=== PATIENT | male | born 1955 | race American Indian/Alaskan Native ===

== ENCOUNTER 2019-03-22 14:40 | Emergency (ER) | payer OTHER ==
[~2019-03-22] VITALS: Ht 175.3 cm; Wt 88.5 kg
[2019-03-22 15:06] LABS: PCO2 Arterial 27.3 mmHg (35-45); PO2 Arterial 58.1 mmHg (80-100); pH Blood Arterial 7.45 (7.35-7.45)
[2019-03-22 15:24] LABS: Hemoglobin 13.4 g/dL (13.5-17.5); Mean Corpuscular HGB 33.8 pg (26.0-34.0); Mean Corpuscular HGB Conc 35.3 g/dL (31.5-36.5); Mean Corpuscular Volume 96 fL (80-100); NRBC ABSOLUTE 0.06 K/mm3 (0.00-0.02); NRBC Auto 0.6 /100 WBC (0.0-0.2); Platelet Count 295 K/mm3 (150-400); RDW Coefficient Variation 12.7 % (11.7-14.2); RDW Standard Deviation 45.5 fL (35.1-46.3); Red Blood Cell Count 3.96 M/mm3 (4.30-5.90); White Blood Cell Count 10.63 K/mm3 (4.00-11.30)
[2019-03-22 15:31] LABS: Alanine Aminotransfer (ALT/SGP 333 U/L (12-78); Albumin, Blood 4.1 g/dL (3.4-5.0); Albumin/Globulin Ratio 0.9 (0.8-1.8); Alk Phos 93 U/L (50-136); Anion Gap 19 mmol/L (6-16); Aspartate Aminotrans (AST/SGOT 694 U/L (12-37); Bilirubin, Total 2.1 mg/dL (0.1-1.0); Blood Urea Nitrogen 65 mg/dL (8-24); CO2, Blood 22 mmol/L (21-32); Calcium, Blood 9.3 mg/dL (8.5-10.1); Chloride, Blood 83 mmol/L (98-108); Creatinine, Blood 4.34 mg/dL (0.60-1.20); Ethanol (Alcohol), Blood, Med <3 mg/dL; Globulin, Blood 4.5 g/dL (2.2-4.0); Glomerular Filtration Rate 15 (60-); Glucose, Blood 104 mg/dL (70-99); Magnesium, Blood 3.4 mg/dL (1.6-2.4); Potassium, Blood 3.4 mmol/L (3.5-5.5); Sodium, Blood 124 mmol/L (136-145); Total Protein, Blood 8.6 g/dL (6.4-8.2); Troponin I 0.019 ng/mL (0.000-0.040)
[2019-03-22 15:50] LABS: Source, Urine Catheter
[2019-03-22 15:54] LABS: Appearance, Urine Hazy (Clear); Blood, Urine 1+ (Neg); Color, Urine Yellow (P-Yellow); Glucose Qualitative, Urine Neg (Neg); Ketones, Urine Neg (Neg); Leukocyte Esterase, Urine 1+ (Neg); Nitrite, Urine Neg (Neg); Protein, Urine 3+ (Neg); Urobilinogen, Urine 1+ (Normal)
[2019-03-22 16:03] LABS: BAND PERCENT MAN 10 % (0-8); BASOPHILS PERCENT MAN 0 % (0-2); EOSINOPHILS PERCENT MAN 0 % (0-6); LYMPHOCYTES ABSOLUTE MAN 2.44 K/mm3 (0.84-5.20); LYMPHOCYTES PERCENT MAN 23 % (21-46); METAMYELOCYTE ABSOLUTE MAN 0.53 K/mm3 (0.00-0.00); METAMYELOCYTE PERCENT MAN 5 % (0-0); MONOCYTES ABSOLUTE MAN 0.74 K/mm3 (0.16-1.47); MONOCYTES PERCENT MAN 7 % (4-13); MYELOCYTE PERCENT MAN 1 % (0-0); SEG NEUTROPHILS PERCENT MAN 54 % (41-73); TOTAL CELLS COUNTED 100
[2019-03-22 16:07] LABS: U Amphetamine Screen DETECTED; U Barbituate Screen Not Detected; U Benzodiazapine Screen Not Detected; U Methamphetamine Screen DETECTED
[2019-03-22 16:08] LABS: U Buprenorphine Screen Not Detected; U Cannabinoids Screen Not Detected; U Cocaine Screen Not Detected; U Methadone Screen Not Detected; U Opiates Screen Not Detected; U Oxycodone Screen Not Detected; U Phencyclidine Screen Not Detected; U Propoxyphene Screen Not Detected
[2019-03-22 16:43] LABS: Bilirubin, Urine 1+ (Neg)
[2019-03-22 16:44] LABS: Bacteria Mod /hpf; Red Blood Cells, Urine 0-2 /hpf (0-2); Squamous Epithelial Cells Few /hpf (Few)
== END 2019-03-22 18:43 | disposition short-term general hospital (02) ==
LOC: ER 14:40
PROVIDERS: Emergency Medicine
DX: J96.01 Acute respiratory failure with hypoxia (principal); N17.9 Acute kidney failure, unspecified; K56.2 Volvulus; Z86.73 Personal history of transient ischemic attack (TIA), and cerebral infarction without residual deficits
CPT/HCPCS: 36415; 36600; 51701; 70450; 71045; 74176; 80053; 81001; 82140; 82803; 83690; 83735; 84484; 85025; 87040; 87086; 93005; 93010; 96361-59; 96365-59; 99285-25; G0480; J2185; J7030

== ENCOUNTER 2019-04-08 18:56 | Inpatient (IN) | payer OTHER ==
[~2019-04-08] VITALS: Ht 172.7 cm; Wt 83.6 kg
[2019-04-08] MEDS ORDERED: PREVALITE PAC4 G/PKT PO (19:25)
[2019-04-08] MEDS ORDERED: K-Dur 20 meq T20 MEQ PO (19:25)
[2019-04-08 20:26] LABS: BASOPHILS ABSOLUTE AUTO 0.07 K/mm3 (0.00-0.23); BASOPHILS PERCENT AUTO 1 % (0-2); EOSINOPHILS ABSOLUTE AUTO 0.14 K/mm3 (0.00-0.68); EOSINOPHILS PERCENT AUTO 2 % (0-6); Hematocrit 38.1 % (37.0-53.0); Hemoglobin 12.5 g/dL (13.5-17.5); IMMATURE GRAN ABSOLUTE AUTO 0.35 K/mm3 (0.00-0.10); IMMATURE GRAN PERCENT AUTO 4 % (0-1); LYMPHOCYTES ABSOLUTE AUTO 2.03 K/mm3 (0.84-5.20); LYMPHOCYTES PERCENT AUTO 25 % (21-46); MONOCYTES ABSOLUTE AUTO 0.86 K/mm3 (0.16-1.47); MONOCYTES PERCENT AUTO 11 % (4-13); Mean Corpuscular HGB 33.8 pg (26.0-34.0); Mean Corpuscular HGB Conc 32.8 g/dL (31.5-36.5); Mean Corpuscular Volume 103 fL (80-100); Mean Platelet Volume 8.4 fL (9.1-12.4); NEUTROPHILS ABSOLUTE AUTO 4.66 K/mm3 (1.96-9.15); NEUTROPHILS PERCENT AUTO 58 % (41-73); NRBC ABSOLUTE 0.03 K/mm3 (0.00-0.02); NRBC Auto 0.4 /100 WBC (0.0-0.2); Platelet Count 443 K/mm3 (150-400); RDW Coefficient Variation 13.9 % (11.7-14.2); RDW Standard Deviation 52.4 fL (35.1-46.3); White Blood Cell Count 8.11 K/mm3 (4.00-11.30)
[2019-04-08 20:37] LABS: Ethanol (Alcohol), Blood, Med <3 mg/dL
[2019-04-08 20:45] LABS: Alanine Aminotransfer (ALT/SGP 29 U/L (12-78); Albumin, Blood 4.4 g/dL (3.4-5.0); Albumin/Globulin Ratio 0.9 (0.8-1.8); Alk Phos 177 U/L (50-136); Anion Gap 8 mmol/L (6-16); Aspartate Aminotrans (AST/SGOT 18 U/L (12-37); Bilirubin, Total 0.5 mg/dL (0.1-1.0); Blood Urea Nitrogen 67 mg/dL (8-24); Bun/Creatinine Ratio 14.7 (12.0-20.0); CO2, Blood 10 mmol/L (21-32); Calcium, Blood 9.5 mg/dL (8.5-10.1); Chloride, Blood 104 mmol/L (98-108); Creatinine, Blood 4.55 mg/dL (0.60-1.20); Globulin, Blood 5.1 g/dL (2.2-4.0); Glomerular Filtration Rate 14 (60-); Glucose, Blood 84 mg/dL (70-99); Potassium, Blood 7.9 mmol/L (3.5-5.5); Sodium, Blood 122 mmol/L (136-145); Total Protein, Blood 9.5 g/dL (6.4-8.2)
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
--- NOTE | 2019-04-08 23:01 | NUR ---
CALLED DR. LYNN ABOUT BLADDER SCAN OF 305ML. NO NEW ORDERS. PT DENIES HAVING TO URINATE.
[2019-04-08 23:21] LABS: Cholesterol 174 mg/dL (50-200); HDL Cholesterol 29 mg/dL (>39); LDL/HDL RATIO 3.5; Low Density Lipoprotein Chol 101 mg/dL (0-110); Triglycerides 221 mg/dL (30-160); Very Low Density Lipoprot Chol 44 mg/dL (6-32)
--- NOTE | 2019-04-09 00:08 | NUR ---
DR. LYNN IN TO SEE PT AND INCREASED IVF TO 150ML/HR.
[2019-04-09 03:53] LABS: Hematocrit 29.8 % (37.0-53.0); Hemoglobin 10.3 g/dL (13.5-17.5); Mean Corpuscular HGB 33.9 pg (26.0-34.0); Mean Corpuscular HGB Conc 34.6 g/dL (31.5-36.5); Mean Platelet Volume 8.4 fL (9.1-12.4); Platelet Count 322 K/mm3 (150-400); RDW Coefficient Variation 13.7 % (11.7-14.2); RDW Standard Deviation 48.6 fL (35.1-46.3); Red Blood Cell Count 3.04 M/mm3 (4.30-5.90); White Blood Cell Count 6.95 K/mm3 (4.00-11.30)
[2019-04-09 03:54] LABS: Mean Corpuscular Volume 98 fL (80-100)
[2019-04-09 04:14] LABS: Alanine Aminotransfer (ALT/SGP 24 U/L (12-78); Albumin, Blood 3.5 g/dL (3.4-5.0); Albumin/Globulin Ratio 0.8 (0.8-1.8); Alk Phos 140 U/L (50-136); Anion Gap 7 mmol/L (6-16); Aspartate Aminotrans (AST/SGOT 17 U/L (12-37); Bilirubin, Total 0.5 mg/dL (0.1-1.0); Blood Urea Nitrogen 60 mg/dL (8-24); CO2, Blood 15 mmol/L (21-32); Calcium, Blood 8.7 mg/dL (8.5-10.1); Chloride, Blood 106 mmol/L (98-108); Creatinine, Blood 3.52 mg/dL (0.60-1.20); Globulin, Blood 4.3 g/dL (2.2-4.0); Glomerular Filtration Rate 19 (60-); Glucose, Blood 96 mg/dL (70-99); Magnesium, Blood 2.4 mg/dL (1.6-2.4); Phosphorus, Blood 4.9 mg/dL (2.5-4.9); Potassium, Blood 5.8 mmol/L (3.5-5.5); Sodium, Blood 128 mmol/L (136-145); Total Protein, Blood 7.8 g/dL (6.4-8.2)
--- NOTE | 2019-04-09 06:11 | NUR ---
PT RESTING IN BED. USES CALL LIGHT APPROPRIATELY. LABS IMPROVING THIS AM. NO SIGN OF DISTRESS.
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
--- NOTE | 2019-04-09 11:33 | NUR ---
PT C/O MIGRAINE 06/29. PT STATES HE DOES NOT TAKE ANYTHING FOR HIS HEADACHES AT HOME. PT ALSO VERY ANXIOUS ABOUT LIVING SITUATION. PT TRYING TO ARRANGE FOR SMALL LOW INCOME APPARTMENT. PT GIVING ME SEVERAL FIRST NAMES OF PEOPLE HE THINKS COULD HELP. UNABLE TO GIVE PHONE NUMBERS OR LAST NAMES. PT DOES NOT APPEAR TO HAVE COGNITIVE ABILITY TO ARRANGE LIVING SITUATION, BUT AGAIN IS VERY ANXIOUS ABOUT CURRENT LIVING SITUIATION AND DOES NOT WANT TO RETURN TO CURRENT HOME. DR DEVINE CALLED R/T HEADACHE; FENT 25MCG TIMES ONE ORDERED.
[2019-04-09 13:59] LABS: C DIFFICILE BY DNA AMP Positive (Negative)
--- NOTE | 2019-04-09 15:11 | NUR ---
PT DENIES C/O HEADACHE. PT RESTING IN BED WATCHING TV W/O COMPLAINTS. TOLERATED CLEAR LIQUID TRY. LABS DRAWN; WILL CALL RESULTS TO DR LYNN WHEN RESULTS AVAILABLE.
[2019-04-09 15:34] LABS: Albumin, Blood 3.3 g/dL (3.4-5.0); Anion Gap 7 mmol/L (6-16); Blood Urea Nitrogen 53 mg/dL (8-24); Bun/Creatinine Ratio 16.8 (12.0-20.0); CO2, Blood 16 mmol/L (21-32); CPK Creatine Kinase 115 U/L (39-308); Calcium, Blood 8.4 mg/dL (8.5-10.1); Chloride, Blood 103 mmol/L (98-108); Creatinine, Blood 3.15 mg/dL (0.60-1.20); Glomerular Filtration Rate 21 (60-); Glucose, Blood 98 mg/dL (70-99); Phosphorus, Blood 4.3 mg/dL (2.5-4.9); Potassium, Blood 5.2 mmol/L (3.5-5.5); Sodium, Blood 126 mmol/L (136-145); Uric Acid, Blood 10.2 mg/dL (3.5-7.2)
--- NOTE | 2019-04-09 15:40 | NUR ---
ASSUMED CARE OF PATIENT FROM MONICA SANTO RN.
--- NOTE | 2019-04-09 15:48 | NUR ---
T/C TO DR. LYNN WITH 1500 LAB RESULTS; INSTRUCTED RN TO REDUCE BICARB DRIP TO 125ML/HR.
--- NOTE | 2019-04-09 18:10 | NUR ---
SUMMARY: PATIENT RESTING OFF/ON T/O AFTERNOON; DRINKING LIQUIDS, FROM DINNER TRAY, SLOW BUT STEADY. SOME BLACKISH/BILE COLORED LIQUID STOOL NOTED IN COLOSTOMY/ABOUT 50ML; NOT EMPTIED AT THIS TIME. DENIES GI UPSET OR ABD PAIN. HEADACHE PAIN RESOLVED. REMAINS PCU STATUS; NO ROOMS AVAILABLE. RN ASSISTS PATIENT WITH HOLDING URINAL IN PLACE FOR VOIDING (OTHERWISE IT LEAKS OR DRIPS ALL OVER THE LINENS).
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
[2019-04-10 03:18] LABS: BASOPHILS ABSOLUTE AUTO 0.04 K/mm3 (0.00-0.23); BASOPHILS PERCENT AUTO 1 % (0-2); EOSINOPHILS ABSOLUTE AUTO 0.22 K/mm3 (0.00-0.68); EOSINOPHILS PERCENT AUTO 4 % (0-6); Hematocrit 25.6 % (37.0-53.0); Hemoglobin 8.9 g/dL (13.5-17.5); IMMATURE GRAN ABSOLUTE AUTO 0.16 K/mm3 (0.00-0.10); IMMATURE GRAN PERCENT AUTO 3 % (0-1); LYMPHOCYTES ABSOLUTE AUTO 1.56 K/mm3 (0.84-5.20); LYMPHOCYTES PERCENT AUTO 30 % (21-46); MONOCYTES ABSOLUTE AUTO 0.44 K/mm3 (0.16-1.47); MONOCYTES PERCENT AUTO 8 % (4-13); Mean Corpuscular HGB 34.1 pg (26.0-34.0); Mean Corpuscular HGB Conc 34.8 g/dL (31.5-36.5); Mean Corpuscular Volume 98 fL (80-100); Mean Platelet Volume 8.2 fL (9.1-12.4); NEUTROPHILS ABSOLUTE AUTO 2.81 K/mm3 (1.96-9.15); NEUTROPHILS PERCENT AUTO 54 % (41-73); NRBC ABSOLUTE 0.02 K/mm3 (0.00-0.02); NRBC Auto 0.4 /100 WBC (0.0-0.2); Platelet Count 263 K/mm3 (150-400); RDW Coefficient Variation 13.8 % (11.7-14.2); Red Blood Cell Count 2.61 M/mm3 (4.30-5.90); White Blood Cell Count 5.23 K/mm3 (4.00-11.30)
[2019-04-10 03:37] LABS: Alanine Aminotransfer (ALT/SGP 18 U/L (12-78); Albumin, Blood 3.2 g/dL (3.4-5.0); Albumin/Globulin Ratio 0.9 (0.8-1.8); Alk Phos 112 U/L (50-136); Anion Gap 6 mmol/L (6-16); Aspartate Aminotrans (AST/SGOT 17 U/L (12-37); Bilirubin, Total 0.4 mg/dL (0.1-1.0); Blood Urea Nitrogen 45 mg/dL (8-24); Bun/Creatinine Ratio 17.6 (12.0-20.0); CO2, Blood 24 mmol/L (21-32); Calcium, Blood 7.9 mg/dL (8.5-10.1); Chloride, Blood 98 mmol/L (98-108); Creatinine, Blood 2.55 mg/dL (0.60-1.20); Globulin, Blood 3.7 g/dL (2.2-4.0); Glomerular Filtration Rate 27 (60-); Glucose, Blood 99 mg/dL (70-99); Phosphorus, Blood 3.4 mg/dL (2.5-4.9); Potassium, Blood 4.7 mmol/L (3.5-5.5); Sodium, Blood 128 mmol/L (136-145); Total Protein, Blood 6.9 g/dL (6.4-8.2)
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
[2019-04-10 08:03] LABS: Percent Saturation 58.8 % (20.0-50.0)
--- NOTE | 2019-04-10 09:27 | NUR ---
0845: CARE ASSUMED, PT RESTING IN BED WATCHING TV, DENIES C/O. COLOSTOMY BAG INTACT WITH SMALL AMOUNT OF SEMI FORMED STOOL, ABD INCISION HEALING WELL WITH NO S/SX INFECTION NOTED. DR. DEVINE IN TO SEE PT, NEW ORDERS. 0915: CLINIMIX INFUSING PER ORDERS, HEPARIN ADMINISTERED. PT MED STATUS NO TELE.
--- NOTE | 2019-04-10 11:42 | NUR ---
ETT ADVANCED BY 3CM BY RT PER DR. FLANNERY, IS NOW 24CM AT THE LIP. FENTANYL ADMINISTERED FOR AGITATION. PT NOW RESTING QUIETLY, NOT CHEWING ON ETT. HR 54, OTHER VSS, PROPOFOL DECREASED TO 40MCG.
--- NOTE | 2019-04-10 12:45 | NUR ---
1100: MATERIAL STOCKKEEPER YARD IN TO VISIT PT. PT RESTING IN BED, VSS, DENIES C/O. 1245: PT EATING LUNCH, DENIES PAIN OR C/O. STOMA TO RLQ BEEFY AND PINK, NO BLEEDING NOTED, STOOL FROM STOMA IS SEMIFORMED. CLINIMIX OFF, NS INFUSING AT 75ML/HR PER DR. LYNN.
--- NOTE | 2019-04-10 13:47 | NUR ---
200ML MUCOUSY GREEN LIQUID STOOL EMPTIED FROM COLOSTOMY BAG. PT DENIES ABD PAIN/DISCOMFORT, TOLERATING REGULAR DIET WELL. PT SITTING UP IN BED TO BRUSH TEETH AND WASH FACE, DENIES C/O.
--- NOTE | 2019-04-10 14:27 | NUR ---
PT REFUSES SHOWER, ALSO REFUSES TO GET OUT OF BED STATING HE HAS A HEADACHE, AGREES TO BEDBATH. LIGHTS OFF, CALL LIGHT AND PO FLUIDS IN REACH, PT DENIES OTHER NEEDS.
--- NOTE | 2019-04-10 17:11 | NUR ---
1630: COLOSTOMY EMPTIED. VSS, PT GIVEN TOAST PER HIS REQUEST, DENIES OTHER NEEDS. PT REMAINS PLEASANT AND COOPERATIVE.
--- NOTE | 2019-04-10 19:16 | NUR ---
PT TOLERATED DINNER WITHOUT C/O ABD PAIN OR NAUSEA. PEPSI GIVEN PER PT REQUEST. PT DENIED C/O T/O SHIFT, WAS COOPERATIVE AND APPROPRIATE WITH CARE. VSS, STOMA REMAINS PINK AND BEEFY WITHOUT BLEEDING, STOOLING WITHOUT DIFFICULTY. PT VOIDING CLEAR YELLOW IN URINAL, USES CALL LIGHT APPROPRIATELY. REMAINS IN CONTACT PRECAUTIONS. CATERING SALES MANAGER WORKING ON DC PLANS. REPORT TO ONCOMING SHIFT.
--- NOTE | 2019-04-10 19:45 | NUR ---
ASSUMED CARE RECIEVED REPORT FROM [facility]. PT IS IN BED WITH CALL LIGHT. DENIES PAIN OR ANY DISCOMFORT AT THIS TIME. [facility] IS EMPTYING ILLEOSTOMY - STOMA IS BEEFY PINK. ALERT AND ORIENTED, AT BASELINE. NS INFUSING AT 75ML/HR. BED IS LOW AND LOCKED,
--- NOTE | 2019-04-11 01:48 | NUR ---
UPDATE PT'S COLOSTOMY BAG WAS LEAKING STOOL, SO ABEL AND I CHANGED IT. 2 & 3/4 IN BAG. PT IS HAVING LOTS OF FLATULENCE, AND LOOSE LIQUIDY/SOLID STOOL. STOMA IS BEEFY PINK. PT HAS NO COMPLAINTS, DENIES PAIN.
[2019-04-11 03:16] LABS: BASOPHILS ABSOLUTE AUTO 0.06 K/mm3 (0.00-0.23); BASOPHILS PERCENT AUTO 1 % (0-2); EOSINOPHILS ABSOLUTE AUTO 0.34 K/mm3 (0.00-0.68); EOSINOPHILS PERCENT AUTO 6 % (0-6); Hematocrit 25.7 % (37.0-53.0); Hemoglobin 8.8 g/dL (13.5-17.5); IMMATURE GRAN ABSOLUTE AUTO 0.18 K/mm3 (0.00-0.10); IMMATURE GRAN PERCENT AUTO 3 % (0-1); LYMPHOCYTES ABSOLUTE AUTO 1.57 K/mm3 (0.84-5.20); LYMPHOCYTES PERCENT AUTO 26 % (21-46); MONOCYTES ABSOLUTE AUTO 0.38 K/mm3 (0.16-1.47); MONOCYTES PERCENT AUTO 6 % (4-13); Mean Corpuscular HGB 33.6 pg (26.0-34.0); Mean Corpuscular HGB Conc 34.2 g/dL (31.5-36.5); Mean Corpuscular Volume 98 fL (80-100); NEUTROPHILS ABSOLUTE AUTO 3.43 K/mm3 (1.96-9.15); NEUTROPHILS PERCENT AUTO 58 % (41-73); Platelet Count 208 K/mm3 (150-400); RDW Coefficient Variation 13.7 % (11.7-14.2); RDW Standard Deviation 48.9 fL (35.1-46.3); Red Blood Cell Count 2.62 M/mm3 (4.30-5.90); White Blood Cell Count 5.96 K/mm3 (4.00-11.30)
[2019-04-11 03:41] LABS: Magnesium, Blood 2.1 mg/dL (1.6-2.4)
[2019-04-11 03:53] LABS: Albumin, Blood 3.2 g/dL (3.4-5.0); Anion Gap 4 mmol/L (6-16); Blood Urea Nitrogen 31 mg/dL (8-24); Bun/Creatinine Ratio 17.3 (12.0-20.0); CO2, Blood 26 mmol/L (21-32); Chloride, Blood 101 mmol/L (98-108); Creatinine, Blood 1.79 mg/dL (0.60-1.20); Glomerular Filtration Rate 41 (60-); Glucose, Blood 88 mg/dL (70-99); Potassium, Blood 4.7 mmol/L (3.5-5.5); Sodium, Blood 131 mmol/L (136-145)
--- NOTE | 2019-04-11 04:42 | NUR ---
SHIFT SUMMARY PT IS ALERT AND ORIENTED TO SELF, PLACE, AND SITUATION. HE HAS A DEVELOPMENTAL DELAY AND A HISTORY OF CVA. HIS SPEECH IS SLURRED, BUT IS BASELINE SP CVA. PT HAS A ILLEOSTOMY IN THE RLQ, STOMA IS BEEFY PINK. PT IS HAVING LOOSE SOLID/LIQUID STOOLS AND LOTS OF FLATULENCE. PT DENIES PAIN, NAUSEA, AND SOB. PT IS TO BE TRANSFERRED TO MEDICAL FLOOR, GAVE REPORT TO BERNA DUTTA.
--- NOTE | 2019-04-11 06:35 | NUR ---
Transfer: Pt transferred to medical floor room at 0530. VSS. no c/o discomfort. Pt hungry-
[2019-04-11] MEDS ORDERED: POTCHL20ER PO (11:17)
[2019-04-11] MEDS ORDERED: PREVALITE PAC4 G/PKT PO (11:21)
--- NOTE | 2019-04-11 18:42 | NUR ---
SHIFT SUMMARY PT FED HIMSELF WITH NO PROBLEM. REPORTS HE WANTS TO GO BACK TO HIS FRIEND [place] HOME WHOM HE WAS STAYING WITH PRIOR TO COMING TO THIS HOSPITAL. ILIOSTOMY FUNCTIONING WELL WITH LARGE AMOUNTS OF FLATUS. HAS DENIED PAIN OR NAUSEA. FRIEND SERA DID COME TO SEE HIM LATE THIS AFTERNOON.
--- NOTE | 2019-04-12 04:22 | NUR ---
NOC SHIFT SUMMARY PT PLEASANT AND COOPERATIVE WITH CARE THIS NIGHT. HIS OSTOMY BAG DID LOOSEN FROM ITS HOLD ON HIS SKIN AND LEAKED. BAG AND SETUP REPLACED AFTER APPLYING SKIN PREP. OSTOMY FUNTIONING WELL AND PRODUCING LIQUID STOOL AND FLATUS. PT IS MILDLY CONFUSED. HE HAS SLEPT MOST OF NIGHT. VSS. APPEARS IN NO ACUTE DISTRESS. WILL CONTINUE TO MONITOR.
[2019-04-12 04:58] LABS: Hematocrit 28.4 % (37.0-53.0); Hemoglobin 9.5 g/dL (13.5-17.5)
[2019-04-12 05:21] LABS: Albumin, Blood 3.2 g/dL (3.4-5.0); Anion Gap 7 mmol/L (6-16); Blood Urea Nitrogen 24 mg/dL (8-24); Bun/Creatinine Ratio 15.4 (12.0-20.0); CO2, Blood 22 mmol/L (21-32); Calcium, Blood 8.6 mg/dL (8.5-10.1); Chloride, Blood 101 mmol/L (98-108); Creatinine, Blood 1.56 mg/dL (0.60-1.20); Glomerular Filtration Rate 48 (60-); Glucose, Blood 104 mg/dL (70-99); Phosphorus, Blood 2.8 mg/dL (2.5-4.9); Potassium, Blood 4.9 mmol/L (3.5-5.5); Sodium, Blood 130 mmol/L (136-145)
--- NOTE | 2019-04-12 18:30 | NUR ---
SHIFT SUMMARY PT UP TO CHAIR FOR BREAKFAST AND AMBULATED WITH P.T. OSTOMY IN PLACE AND EMPTIED FREQUENTLY AND LARGE AMOUNTS OF FLATUS DISCHARGED. DENIES PAIN OR NAUSEA THROUGH DAY. HOPES TO GO HOME SOON WITH SERA AND CLOSE FAMILY FRIEND WHO HAS BEEN CARING FOR HIM.
--- NOTE | 2019-04-12 20:10 | NUR ---
ASSUMED CARE OF THE PATIENT: LEANNE WAS PLEASANT AND COOPERATIVE, WATCHING TV IN HIS ROOM. DENIED ANY NAUSEA OR DISCOMFORT. SEE ASSESSMENT FOR DETAILS. MEDS WERE GIVEN PER EMAR. ILLIOSTOMY JUST EMPTIED BY HOUSING DIRECTOR, AND REBURPED IT. INCISION IS HEALING WELL. DENIED ANY NEEDS AT THIS TIME. WILL CONTINUE TO [facility].
--- NOTE | 2019-04-13 04:59 | NUR ---
SHIFT SUMMARY: PATIENT HAS BEEN VERY PLEASANT AND COOPERATIVE ALL NIGHT. ASSISTED IN BATHROOM CARE, URINAL USE, ILLIOSTOMY EMPTIED EVERY 2 HOURS AND BURPED TO PREVENT BREAKAGE. HE HAS A LARGE AMOUNT OF GAS THAT CAUSES THE BAG TO EXPAND TO ITS MAX SO IT HAD TO BE BURPED OFTEN. HE WAS MUNCHY ALL NIGHT, GAVE HIM SNACKS PRN, ILLOSTOMY STAYED INTACT. ATTENDS STAYED DRY, MEDS WERE GIVEN PER EMAR, CALL LIGHT STAYED IN REACH AND PATIENT USED IT NEEDED. HE SLEPT OFF AND ON THROUGHOUT THE NIGHT, NO ACUTE CHANGES THIS SHIFT. WILL REPORT TO DAY SHIFT RN.
[2019-04-13 05:18] LABS: Hematocrit 30.7 % (37.0-53.0); Hemoglobin 10.3 g/dL (13.5-17.5)
[2019-04-13 05:41] LABS: Albumin, Blood 3.3 g/dL (3.4-5.0); Anion Gap 8 mmol/L (6-16); Blood Urea Nitrogen 25 mg/dL (8-24); Bun/Creatinine Ratio 15.7 (12.0-20.0); CO2, Blood 19 mmol/L (21-32); Calcium, Blood 8.5 mg/dL (8.5-10.1); Chloride, Blood 103 mmol/L (98-108); Creatinine, Blood 1.59 mg/dL (0.60-1.20); Glomerular Filtration Rate 47 (60-); Glucose, Blood 114 mg/dL (70-99); Magnesium, Blood 1.8 mg/dL (1.6-2.4); Phosphorus, Blood 2.8 mg/dL (2.5-4.9); Potassium, Blood 5.1 mmol/L (3.5-5.5); Sodium, Blood 130 mmol/L (136-145)
[2019-04-13] MEDS ORDERED: SIME80CH PO (13:32)
--- NOTE | 2019-04-13 15:00 | NUR ---
DISCHARGE INSTRUCTIONS COMPLETED AND DISCUSSED WITH PTS FRIEND WHO HE LIVES WITH AND CARES FOR HIM. PT ALSO LISTENED IN. ASSISTED TO [facility] VIA W/C. ABLE TO TRANSFER SELF WITH MIN ASSIST TO CAR.
== END 2019-04-13 14:13 | disposition home or self-care (01) | DRG 439 ==
LOC: ER 18:56 → ICUW 20:56 → ICUE 21:55 → MEDS 04-11 05:10 → ENPENDDIS 04-13 13:18 → MEDS 04-13 14:13
PROVIDERS: Emergency Medicine; Internal Medicine; Internal Medicine Nephrology; ADMIT Internal Medicine
DX: K85.90 Acute pancreatitis without necrosis or infection, unspecified (principal); A04.72 Enterocolitis due to Clostridium difficile, not specified as recurrent; N17.9 Acute kidney failure, unspecified; E87.1 Hypo-osmolality and hyponatremia; E87.2 Acidosis; N18.9 Chronic kidney disease, unspecified; E87.5 Hyperkalemia; F03.90 Unspecified dementia, unspecified severity, without behavioral disturbance, psychotic disturbance, mood disturbance, and anxiety; D63.1 Anemia in chronic kidney disease; E86.9 Volume depletion, unspecified; E88.09 Other disorders of plasma-protein metabolism, not elsewhere classified; D89.2 Hypergammaglobulinemia, unspecified; Z86.73 Personal history of transient ischemic attack (TIA), and cerebral infarction without residual deficits; Z93.3 Colostomy status
CPT/HCPCS: 36415; 76700; 80053; 80061; 80069; 82550; 82728; 83540; 83550; 83690; 83735; 84100; 84132; 84550; 85014; 85018; 85025; 85027; 87324; 87493; 93005; 93010; 93306; 94644; 96361; 96374; 96375; 97110; 97116; 97161; 97166; 97530; 99285-25; G0480; J0610; J0881; J1644; J1815; J2765; J3010; J7030; J7070; J7131; J7799

== ENCOUNTER 2019-04-29 19:08 | Inpatient (IN) | payer OTHER ==
[~2019-04-29] VITALS: Ht 185.4 cm; Wt 76.0 kg
[~2019-04-29 19:08] MED LIST: K-Dur 20 meq T20 MEQ PO; POTCHL20ER PO; PREVALITE PAC4 G/PKT PO; SIME80CH PO
[2019-04-29 20:00] LABS: Calcium, Ionized (POC) 1.14 mmol/L (1.10-1.46); Chloride (POC) 100 mmol/L (98-108); Glucose (ISTAT POC) 104 mg/dL (70-99); Hemoglobin (POC) 11.6 g/dL (13.5-17.5); Potassium (POC) 6.1 mmol/L (3.5-5.5); Sodium (POC) 120 mmol/L (135-148); Total CO2 (POC) 11 mmol/L (21-32)
[2019-04-29 21:28] LABS: BASOPHILS ABSOLUTE AUTO 0.05 K/mm3 (0.00-0.23); BASOPHILS PERCENT AUTO 1 % (0-2); EOSINOPHILS PERCENT AUTO 3 % (0-6); Hemoglobin 11.2 g/dL (13.5-17.5); IMMATURE GRAN ABSOLUTE AUTO 0.06 K/mm3 (0.00-0.10); IMMATURE GRAN PERCENT AUTO 1 % (0-1); LYMPHOCYTES ABSOLUTE AUTO 1.19 K/mm3 (0.84-5.20); LYMPHOCYTES PERCENT AUTO 16 % (21-46); MONOCYTES ABSOLUTE AUTO 0.14 K/mm3 (0.16-1.47); MONOCYTES PERCENT AUTO 2 % (4-13); Mean Corpuscular Volume 97 fL (80-100); Mean Platelet Volume 8.6 fL (9.1-12.4); NEUTROPHILS ABSOLUTE AUTO 6.01 K/mm3 (1.96-9.15); NEUTROPHILS PERCENT AUTO 79 % (41-73); Platelet Count 196 K/mm3 (150-400); RDW Coefficient Variation 14.3 % (11.7-14.2); RDW Standard Deviation 51.2 fL (35.1-46.3); Red Blood Cell Count 3.29 M/mm3 (4.30-5.90); White Blood Cell Count 7.65 K/mm3 (4.00-11.30)
[2019-04-29 21:47] LABS: Albumin, Blood 4.2 g/dL (3.4-5.0); Albumin/Globulin Ratio 0.9 (0.8-1.8); Bilirubin, Total 0.7 mg/dL (0.1-1.0); Bun/Creatinine Ratio 23.1 (12.0-20.0); Calcium, Blood 9.2 mg/dL (8.5-10.1); Creatinine, Blood 3.34 mg/dL (0.60-1.20); Globulin, Blood 4.6 g/dL (2.2-4.0); Potassium, Blood 5.6 mmol/L (3.5-5.5); Total Protein, Blood 8.8 g/dL (6.4-8.2)
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
[2019-04-29 23:19] LABS: Potassium, Blood 5.9 mmol/L (3.5-5.5); Uric Acid, Blood 9.7 mg/dL (3.5-7.2)
--- NOTE | 2019-04-30 01:52 | NUR ---
PT said he wants DNR status and informed DR Conti who deferred changing from Full code to DNR status. Verified with PT who said he wants DNR DNI status. DR Luis updated and order obtained to change PT to DNR. Purple band applied.
[2019-04-30 02:25] LABS: Source, Urine Voided
[2019-04-30 02:27] LABS: Bilirubin, Urine Neg (Neg); Blood, Urine 2+ (Neg); Glucose Qualitative, Urine Neg (Neg); Ketones, Urine Neg (Neg); Leukocyte Esterase, Urine Neg (Neg); Nitrite, Urine Neg (Neg); Protein, Urine 2+ (Neg); Urobilinogen, Urine NORM (Normal)
[2019-04-30 02:31] LABS: Appearance, Urine Clear (Clear); Color, Urine Yellow (P-Yellow)
[2019-04-30 02:33] LABS: Bacteria Few /hpf; Granular Casts 0-2 /lpf ({null, 0}); Hyaline Casts 0-2 /lpf (0-2); Red Blood Cells, Urine 0-2 /hpf (0-2); Squamous Epithelial Cells Not Seen /hpf (Few); White Blood Cells, Urine 0-2 /hpf (0-5)
[2019-04-30 04:59] LABS: BASOPHILS ABSOLUTE AUTO 0.04 K/mm3 (0.00-0.23); BASOPHILS PERCENT AUTO 1 % (0-2); EOSINOPHILS ABSOLUTE AUTO 0.24 K/mm3 (0.00-0.68); EOSINOPHILS PERCENT AUTO 3 % (0-6); Hematocrit 28.7 % (37.0-53.0); Hemoglobin 10.1 g/dL (13.5-17.5); IMMATURE GRAN ABSOLUTE AUTO 0.05 K/mm3 (0.00-0.10); IMMATURE GRAN PERCENT AUTO 1 % (0-1); LYMPHOCYTES ABSOLUTE AUTO 1.67 K/mm3 (0.84-5.20); LYMPHOCYTES PERCENT AUTO 24 % (21-46); MONOCYTES ABSOLUTE AUTO 0.33 K/mm3 (0.16-1.47); MONOCYTES PERCENT AUTO 5 % (4-13); Mean Corpuscular HGB 33.9 pg (26.0-34.0); Mean Corpuscular HGB Conc 35.2 g/dL (31.5-36.5); Mean Corpuscular Volume 96 fL (80-100); Mean Platelet Volume 8.6 fL (9.1-12.4); NEUTROPHILS ABSOLUTE AUTO 4.72 K/mm3 (1.96-9.15); NEUTROPHILS PERCENT AUTO 67 % (41-73); Platelet Count 174 K/mm3 (150-400); RDW Coefficient Variation 14.2 % (11.7-14.2); RDW Standard Deviation 49.8 fL (35.1-46.3); Red Blood Cell Count 2.98 M/mm3 (4.30-5.90); White Blood Cell Count 7.05 K/mm3 (4.00-11.30)
[2019-04-30 05:23] LABS: Anion Gap 11 mmol/L (6-16); Blood Urea Nitrogen 73 mg/dL (8-24); CO2, Blood 16 mmol/L (21-32); Calcium, Blood 9.2 mg/dL (8.5-10.1); Chloride, Blood 96 mmol/L (98-108); Creatinine, Blood 3.04 mg/dL (0.60-1.20); Glomerular Filtration Rate 22 (60-); Glucose, Blood 88 mg/dL (70-99); Magnesium, Blood 2.3 mg/dL (1.6-2.4); Phosphorus, Blood 5.3 mg/dL (2.5-4.9); Potassium, Blood 5.2 mmol/L (3.5-5.5); Sodium, Blood 123 mmol/L (136-145)
[2019-04-30 08:34] LABS: Free Thyroxine 0.12 ng/dL (0.70-1.60)
[2019-04-30 08:43] LABS: Triiodothyronine, Free <0.50 pg/mL (2.18-3.98)
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
--- NOTE | 2019-04-30 19:31 | NUR ---
PT says he is unable to read or write, used verbal methods for education. PT receptive, talkative pleasant
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
[2019-05-01 04:51] LABS: Hematocrit 23.9 % (37.0-53.0); Hemoglobin 8.3 g/dL (13.5-17.5)
[2019-05-01 05:14] LABS: Albumin, Blood 3.4 g/dL (3.4-5.0); Anion Gap 10 mmol/L (6-16); Blood Urea Nitrogen 55 mg/dL (8-24); Bun/Creatinine Ratio 25.1 (12.0-20.0); CO2, Blood 21 mmol/L (21-32); Calcium, Blood 8.4 mg/dL (8.5-10.1); Chloride, Blood 96 mmol/L (98-108); Creatinine, Blood 2.19 mg/dL (0.60-1.20); Glomerular Filtration Rate 33 (60-); Glucose, Blood 92 mg/dL (70-99); Potassium, Blood 4.3 mmol/L (3.5-5.5); Sodium, Blood 127 mmol/L (136-145)
--- NOTE | 2019-05-01 16:57 | NUR ---
SHIFT SUMMARY NO ACUTE CHANGES THIS SHIFT. ADULT PROTECTIVE SERVICES SAW PT TODAY. PT DENIES PAIN. ASSISTING WITH COLOSTOMY. IVF INFUSING PER ORDERS. PT JUAN RENAL DIET. PT USES URINAL AT BEDSIDE. PT FREQUENTLY USES CALL LIGHT. REPEAT LABS IN THE MORNING.
--- NOTE | 2019-05-01 19:31 | NUR ---
OSTOMY CARE OSTOMY BAG AND ACCESORIES CHANGED BY THIS RN. STOMA IS BEEFY RED, PRODUCING LIQUID BROWN STOOL. SKIN SURROUNDING SITE IS RED AND IRRITATED BUT IMPROVING COMPARED TO CHART PICS.
[2019-05-02 05:27] LABS: BASOPHILS ABSOLUTE AUTO 0.06 K/mm3 (0.00-0.23); BASOPHILS PERCENT AUTO 1 % (0-2); EOSINOPHILS ABSOLUTE AUTO 0.25 K/mm3 (0.00-0.68); EOSINOPHILS PERCENT AUTO 5 % (0-6); Hematocrit 24.7 % (37.0-53.0); Hemoglobin 8.6 g/dL (13.5-17.5); IMMATURE GRAN ABSOLUTE AUTO 0.03 K/mm3 (0.00-0.10); IMMATURE GRAN PERCENT AUTO 1 % (0-1); LYMPHOCYTES ABSOLUTE AUTO 1.24 K/mm3 (0.84-5.20); LYMPHOCYTES PERCENT AUTO 27 % (21-46); MONOCYTES ABSOLUTE AUTO 0.28 K/mm3 (0.16-1.47); MONOCYTES PERCENT AUTO 6 % (4-13); Mean Corpuscular HGB 33.6 pg (26.0-34.0); Mean Corpuscular HGB Conc 34.8 g/dL (31.5-36.5); Mean Corpuscular Volume 97 fL (80-100); Mean Platelet Volume 8.5 fL (9.1-12.4); NEUTROPHILS ABSOLUTE AUTO 2.82 K/mm3 (1.96-9.15); NEUTROPHILS PERCENT AUTO 60 % (41-73); Platelet Count 155 K/mm3 (150-400); RDW Coefficient Variation 14.5 % (11.7-14.2); RDW Standard Deviation 50.8 fL (35.1-46.3); Red Blood Cell Count 2.56 M/mm3 (4.30-5.90); White Blood Cell Count 4.68 K/mm3 (4.00-11.30)
[2019-05-02 05:50] LABS: Alanine Aminotransfer (ALT/SGP 14 U/L (12-78); Albumin, Blood 3.3 g/dL (3.4-5.0); Albumin/Globulin Ratio 0.9 (0.8-1.8); Alk Phos 79 U/L (50-136); Anion Gap 4 mmol/L (6-16); Aspartate Aminotrans (AST/SGOT 19 U/L (12-37); Bilirubin, Direct 0.2 mg/dL (0.0-0.3); Bilirubin, Indirect 0.6 mg/dL (0.1-0.7); Bilirubin, Total 0.8 mg/dL (0.1-1.0); Blood Urea Nitrogen 37 mg/dL (8-24); CO2, Blood 29 mmol/L (21-32); Calcium, Blood 8.6 mg/dL (8.5-10.1); Chloride, Blood 96 mmol/L (98-108); Creatinine, Blood 1.85 mg/dL (0.60-1.20); Globulin, Blood 3.5 g/dL (2.2-4.0); Glomerular Filtration Rate 40 (60-); Glucose, Blood 95 mg/dL (70-99); Magnesium, Blood 2.1 mg/dL (1.6-2.4); Phosphorus, Blood 2.9 mg/dL (2.5-4.9); Potassium, Blood 4.1 mmol/L (3.5-5.5); Sodium, Blood 129 mmol/L (136-145); Total Protein, Blood 6.8 g/dL (6.4-8.2)
--- NOTE | 2019-05-02 06:10 | NUR ---
SHIFT SUMMARY PT c DEVELOPMENTAL DELAY/COG IMPAIRMENT IS A&O X 2, PLEASANT AND COOPERATIVE WITH CARE. OSTOMY BAG AND ACCESSORIES CHANGED THIS SHIFT. OSTOMY PRODUCING LIQUID STOOL WITH WHOLE FOOD CHUNKS. HAS HAD A TOTAL OF 750 ML STOOL OUTPUT. STOMA IS BEEFY RED, SKIN SURROUNDING SITE IS RED AND IRRITATED BUT SHOWS IMPROVEMENTS COMPARED TO CHART PICS. BICARB RUNNING @ 50 ML/HR. LABS SHOW SLIGHT IMPROVEMENT THIS AM. PT RESTING IN BED AT THIS TIME, CALL LT IN REACH. WILL CONT TO MONITOR AND PROVIDE CARE UNTIL PRESUMED BY ONCOMING RN.
--- NOTE | 2019-05-02 17:05 | NUR ---
PATIENT IS ALERT AND ORIENTED AND COOPERATIVE WITH CARE. PATIENT USES THE URINAL IN BED INDEPENDENTLY. PATIENT WORKED WITH PHYSICAL THERAPY TODAY, USING A FWW AND GAIT BELT WITH 1PA. HE SAT UP IN THE RECLINER FOR A FEW HOURS AFTER BREAKFAST AND FOR LUNCH. NO COMPLAINTS OF PAIN FROM THE PATIENT TODAY. WILL CONTINUE TO MONITOR.
[2019-05-03 05:16] LABS: Hematocrit 26.3 % (37.0-53.0); Hemoglobin 8.9 g/dL (13.5-17.5)
--- NOTE | 2019-05-03 05:40 | NUR ---
SHIFT SUMMARY CLINIMIX DC'D THIS AM PER DR LYNN. PT IS PLEASANT AND COOPERATIVE. COLOSTOMY WITH LARGE OUTPUT OF LIQUID STOOL MIXED WITH FOOD AND GAS. PT HAS DC ORDERED THAT ARE PENDING SS WORKS OUT A SAFE D/C PLAN FOR PT. MEDICALLY STABLE AT THIS POINT. PT RESTING IN BED AT THIS TIME, CALL LT IN REACH. WILL CONT TO MONITOR AND PROVIDE CARE UNTIL PRESUMED BY ONCOMING RN.
[2019-05-03 05:46] LABS: Albumin, Blood 3.2 g/dL (3.4-5.0); Anion Gap 7 mmol/L (6-16); Blood Urea Nitrogen 29 mg/dL (8-24); Bun/Creatinine Ratio 18.1 (12.0-20.0); CO2, Blood 26 mmol/L (21-32); Calcium, Blood 8.5 mg/dL (8.5-10.1); Chloride, Blood 98 mmol/L (98-108); Glomerular Filtration Rate 47 (60-); Glucose, Blood 93 mg/dL (70-99); Phosphorus, Blood 2.6 mg/dL (2.5-4.9); Potassium, Blood 4.7 mmol/L (3.5-5.5); Sodium, Blood 131 mmol/L (136-145)
--- NOTE | 2019-05-03 14:46 | NUR ---
DENIES PAIN. DENIES SOB. RESP E/U ON RA. DENIES N/V. STOMA RED AND BEEFY. LIQUID BROWN STOOL AND GAS IN COLOSTOMY BAG. NO OTHER SIGNIFICANT CHANGES.
--- NOTE | 2019-05-03 17:26 | NUR ---
SHIFT SUMMARY NO CHANGES SINCE I ASSUMED CARE OF PATIENT THIS AFTERNOON. PATIENT IS AWAITING SAFE DC PLANNING. NO COMPLAINTS OTHER THAN WANTING TO LEAVE. WOUND ON COCCYX ASSESSED AND CLEAN AND DRY. ABDOMINAL REDNESS IS ALSO IMPROVED.
--- NOTE | 2019-05-03 20:12 | NUR ---
PT with multiple requests turns on light in between requests for warm blankets or snacks. Colostomy patent emptied thick yellowish stool with undigested food chunks. Skin care to abd and PT CO staph infection on penis, skin clear, old scarring in bilat groin, cleansed with karaclense and applied calmaseptic. PT has told me he is homeless and has no money and he has been noncompliant with taking any prescribed meds. he is unable to care for self, or care for colostomy. He has a advocate Aidee at [phone]. She said she was going to come in and see him but he said she has not yet. SW assessing for safe discharge plan. PT has [employer] SSDI hearing pending 05/17/19. Cognitive deficits present.
[2019-05-04 05:16] LABS: Hematocrit 27.8 % (37.0-53.0); Hemoglobin 9.3 g/dL (13.5-17.5)
[2019-05-04 05:38] LABS: Albumin, Blood 3.4 g/dL (3.4-5.0); Anion Gap 7 mmol/L (6-16); Blood Urea Nitrogen 23 mg/dL (8-24); Bun/Creatinine Ratio 13.6 (12.0-20.0); CO2, Blood 26 mmol/L (21-32); Calcium, Blood 8.8 mg/dL (8.5-10.1); Chloride, Blood 98 mmol/L (98-108); Creatinine, Blood 1.69 mg/dL (0.60-1.20); Glomerular Filtration Rate 44 (60-); Glucose, Blood 90 mg/dL (70-99); Phosphorus, Blood 2.5 mg/dL (2.5-4.9); Potassium, Blood 4.8 mmol/L (3.5-5.5); Sodium, Blood 131 mmol/L (136-145)
--- NOTE | 2019-05-04 06:19 | NUR ---
PT continues to show cognitive impairment with slurred speech and inappropriate speech. States I want to shave my head, I have staph infection on my penis it itches. Poured orange juice into urinal, said he was unsure why. Said he is going camping. No attempts to care for colostomy. IS continent of urine but voids minimal amts tonight. Bladder scanned PVR for 17 ml. Colostomy appliance and bag changed due to leaking. Up to bedside chair times 1. Skin condition improving with cares. PT throws skin hunks from peeling feet around room. Poor insight into medical needs, inappropriate with Female staff at times, this AM he was calling and had hand down pants hanging onto penis. reminded he is not being appropriate. Poor hygiene said he showered.
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
== END 2019-05-04 17:19 | disposition home health service (06) | DRG 682 ==
LOC: ER 19:08 → MEDS 21:37
PROVIDERS: Emergency Medicine; Hospitalist; Internal Medicine Nephrology; ADMIT Hospitalist
DX: N17.9 Acute kidney failure, unspecified (principal); K56.2 Volvulus; E87.1 Hypo-osmolality and hyponatremia; E87.2 Acidosis; N18.9 Chronic kidney disease, unspecified; D63.1 Anemia in chronic kidney disease; E87.5 Hyperkalemia; E03.9 Hypothyroidism, unspecified; E86.9 Volume depletion, unspecified; E83.39 Other disorders of phosphorus metabolism; Z86.73 Personal history of transient ischemic attack (TIA), and cerebral infarction without residual deficits; Z59.0 Homelessness; Z87.820 Personal history of traumatic brain injury; Z93.3 Colostomy status
CPT/HCPCS: 36415; 76770; 80047; 80048; 80053; 80069; 81001; 82248; 82533; 83735; 83930; 84100; 84132; 84295; 84439; 84443; 84481; 84550; 85014; 85018; 85025; 87493; 96361; 96374; 96375; 97162; 97530; 99284-25; J0881; J1815; J7030; J7131; J7799

== ENCOUNTER 2019-05-13 11:08 | Observation (INO) | payer OTHER ==
[~2019-05-13] VITALS: Ht 188 cm; Wt 77.1 kg
[2019-05-13 12:14] LABS: BASOPHILS ABSOLUTE AUTO 0.04 K/mm3 (0.00-0.23); BASOPHILS PERCENT AUTO 1 % (0-2); EOSINOPHILS ABSOLUTE AUTO 0.17 K/mm3 (0.00-0.68); EOSINOPHILS PERCENT AUTO 3 % (0-6); Hematocrit 28.1 % (37.0-53.0); Hemoglobin 9.5 g/dL (13.5-17.5); IMMATURE GRAN ABSOLUTE AUTO 0.05 K/mm3 (0.00-0.10); IMMATURE GRAN PERCENT AUTO 1 % (0-1); LYMPHOCYTES ABSOLUTE AUTO 1.66 K/mm3 (0.84-5.20); LYMPHOCYTES PERCENT AUTO 24 % (21-46); MONOCYTES ABSOLUTE AUTO 0.43 K/mm3 (0.16-1.47); MONOCYTES PERCENT AUTO 6 % (4-13); Mean Corpuscular HGB 33.7 pg (26.0-34.0); Mean Corpuscular HGB Conc 33.8 g/dL (31.5-36.5); Mean Platelet Volume 8.3 fL (9.1-12.4); NEUTROPHILS ABSOLUTE AUTO 4.48 K/mm3 (1.96-9.15); NEUTROPHILS PERCENT AUTO 66 % (41-73); Platelet Count 170 K/mm3 (150-400); RDW Coefficient Variation 14.1 % (11.7-14.2); RDW Standard Deviation 51.3 fL (35.1-46.3); Red Blood Cell Count 2.82 M/mm3 (4.30-5.90); White Blood Cell Count 6.83 K/mm3 (4.00-11.30)
[2019-05-13 12:22] LABS: Mean Corpuscular Volume 100 fL (80-100)
[2019-05-13 12:32] LABS: Albumin, Blood 3.8 g/dL (3.4-5.0); Albumin/Globulin Ratio 0.9 (0.8-1.8); Bilirubin, Total 1.2 mg/dL (0.1-1.0); Bun/Creatinine Ratio 14.2 (12.0-20.0); Calcium, Blood 9.1 mg/dL (8.5-10.1); Creatinine, Blood 2.18 mg/dL (0.60-1.20); Globulin, Blood 4.4 g/dL (2.2-4.0); Potassium, Blood 4.9 mmol/L (3.5-5.5); Total Protein, Blood 8.2 g/dL (6.4-8.2)
[2019-05-13] MEDS ORDERED: Cholestyramine378 GM PO (14:17)
[2019-05-13] MEDS ORDERED: LEVSOD50 PO (14:32)
--- NOTE | 2019-05-13 22:09 | NUR ---
PATIENT IS A NEW ADMIT ON DAY SHIFT RIGHT BEFORE SHIFT CHANGE. HIS W/C IN ROOM CLEANED UP BY STAFF. AXO X 3 W/CONFUSION. SLOW TO RESPOND BUT ABLE. NS STARTED AT 150 mL/HR. PATIENT ORIENTED TO ROOM AND CALL LIGHT SYSTEM. RESTING AND WATCHING TV. WILL CONTINUE TO MONITOR.
--- NOTE | 2019-05-14 00:19 | NUR ---
IV ABX INFUSING. PATIENT DENIES PAIN, SOB, AND N/V. WATCHING TV AND SANDWICH PROVIDED. CALL LIGHT IN REACH.
--- NOTE | 2019-05-14 03:56 | NUR ---
SHIFT SUMMARY PATIENT HAD NO ACUTE CHANGES OBSERVED THIS SHIFT. AXOX 3 AND SLOW TO RESPOND. ONE PERSON ASSIST TO BSC AND USES URINAL AT BS. PIV REMAINS INTACT. NS INFUSING AT 150 mL/HR. IV ABX INFUSED. PATIENT REPORTS HAVING NO TEETH. TAKES MEDS WHOLE WITH WATER. COLOSTOMY R ABDOMEN. VSS/AFEBRILE. DENIES PAIN, SOB, AND N/V. CALL LIGHT IN REACH. BED IN LOWEST POSITION. WILL CONTINUE TO MONITOR UNTIL DAY SHIFT RN ASSUMES CARE.
[2019-05-14 06:05] LABS: Bun/Creatinine Ratio 16.8 (12.0-20.0); Calcium, Blood 8.3 mg/dL (8.5-10.1); Creatinine, Blood 1.9 mg/dL (0.60-1.20); Potassium, Blood 4.2 mmol/L (3.5-5.5)
--- NOTE | 2019-05-14 14:30 | NUR ---
CARE ASSUMED OF PT AT APPROXIMATELY 1400. PT IS ALERT AND ORIENTED. SOME OF PT'S COMMENTS ARE INAPPRORPIATE PT IS EASILY REDIRECTABLE. OSTOMY APPLIANCE IS IN PLACE AND DOES NOT APPEAR TO BE LEAKING. VSS. WILL CONTINUE TO MONITOR.
--- NOTE | 2019-05-14 15:56 | NUR ---
OSTOMY APPLIANCE CAME OFF WHILE PT WAS SLEEPING. OSTOMY APPLIANCE WAS REPLACED. OSTOMY BELT USED TO SECURE OSTOMY APPLIANCE. WILL CONTINUE TO MONITOR.
--- NOTE | 2019-05-14 18:31 | NUR ---
SHIFT SUMMARY NO CHANGES TO REPORT SINCE CARE ASSUMED. OSTOMY APPLIANCE APPEARS TO BE STAYING IN PLACE WELL WITH THE USE OF THE OSTOMY BELT. WILL MONITOR UNTIL REPORT TO NOC RN.
--- NOTE | 2019-05-15 04:29 | NUR ---
SHIFT SUMMARY: 63 Y/O MALE RESTED COMFORTABLY ALL SHIFT, DENIES PAIN OR NAUSEA, PATIENTS COLOSTOMY INTACT AND EMPTIED OF SOLID FOOD PARTICLES--CARROTS THAT WERE UNCHEWED FROM BAG, SKIN SURROUNDING OSTOMY IS SLIGHTLY REDDENED AND EXCORIATED FROM WHERE STOMA HAD LEAKED OUT ONTO SKIN IN RIGHT THIGH/GROIN/FLANK, ALERT AND ORIENTED X 2, ABLE TO FOLLOW VERY SIMPLE VERBAL COMMANDS WITH THOUGHT PROCESS SLIGHTLY DISORGANIZED AT TIMES DURING INTERACTIONS WITH NURSING STAFF, BED LOW POSITION, CALL LIGHT AT SIDE.
--- NOTE | 2019-05-15 18:09 | NUR ---
DISCHARGE NOTE PATIENT DISCHARGED TO [facility]. PATIENT SENT WITH SEVERAL EXTRA OSTOMY BAGS AND OSTOMY REPLACEMENT SETS, POWDER, SQUIRT BOTTLE, SKIN CREAMS, PAPER TOWELS, AND SNACKS. PT GIVEN A SWEATER BY CRACKER AND COOKIE MACHINE OPERATOR. PATIENT RE-EDUCATED ABOUT HOW TO EMPTY AND CLOSE OSTOMY BAG BY THE CUSTOMER ACCOUNT MANAGER. OSTOMY BELT IN PLACE, EXTRA BELT SENT WITH PATIENT. SKIN AROUND ILEOSTOMY, FLANK, DOWN TO GROIN IS PINK AND SLIGHTLY EXCORIATED, LOTION APPLIED TODAY. PT IS CALM, PLEASANT, AND ORIENTED X2. PT CAN FOLLOW SIMPLE COMMANDS AND THOUGHTS/SENTENCES ARE DISORGANIZED BUT HE CAN EXPRESS NEEDS. IN THE AM AT THE BEGINNING OF THE SHIFT, DR BOLANOS WAS NOTIFIED OF THE WHOLE PIECES OF UNCHEWED FOOD NOTED IN BAG. DR BOLANOS CONFIRMED FROM CHART THAT IT WAS AN ILEOSTOMY AND DIET WAS CHANGED TO MECHANICAL SOFT. PT WAS INSTRUCTED TO EAT A SOFT DIET, PT VOICED UNDERSTANDING. DISCHARGE PACKET GIVEN TO PATIENT, PT SIGNED DC FORM. IV REMOVED.
== END 2019-05-15 16:57 | disposition home health service (06) ==
LOC: ER 11:08 → MEDS 14:18 → ENPENDDIS 05-15 10:56 → MEDS 05-15 16:57
PROVIDERS: Emergency Medicine; ADMIT Internal Medicine
DX: Z43.3 Encounter for attention to colostomy (principal); N17.9 Acute kidney failure, unspecified; N18.9 Chronic kidney disease, unspecified; D63.1 Anemia in chronic kidney disease; E03.9 Hypothyroidism, unspecified; E87.1 Hypo-osmolality and hyponatremia; K56.2 Volvulus; G31.84 Mild cognitive impairment of uncertain or unknown etiology
CPT/HCPCS: 36415; 80048; 80053; 85025; 96361; 96365; 96366; 96372; 96376; 99284-25; A9270; G0378; J0690; J1650; J7030

== ENCOUNTER 2019-05-16 14:26 | Emergency (ER) | payer OTHER ==
[~2019-05-16] VITALS: Ht 182.9 cm; Wt 77.1 kg
[~2019-05-16 14:26] MED LIST changes: +Cholestyramine378 GM PO; +LEVSOD50 PO
== END 2019-05-16 15:25 | disposition home or self-care (01) ==
LOC: ER 14:26
DX: Z43.3 Encounter for attention to colostomy (principal); Z79.899 Other long term (current) drug therapy
CPT/HCPCS: 99283

== ENCOUNTER 2019-05-19 16:00 | Emergency (ER) | payer OTHER ==
[~2019-05-19] VITALS: Ht 182.9 cm; Wt 77.1 kg
[2019-05-19] MEDS ORDERED: AQUAPHOR99 GM TOP (17:11)
== END 2019-05-19 18:30 | disposition home or self-care (01) ==
LOC: ER 16:00
DX: K94.03 Colostomy malfunction (principal); L30.9 Dermatitis, unspecified; Z79.899 Other long term (current) drug therapy
CPT/HCPCS: 99283

== ENCOUNTER 2019-05-21 09:22 | Emergency (ER) | payer OTHER ==
[~2019-05-21] VITALS: Ht 185.4 cm; Wt 77.1 kg
[~2019-05-21 09:22] MED LIST changes: +AQUAPHOR99 GM TOP
== END 2019-05-21 10:36 | disposition home or self-care (01) ==
LOC: ER 09:22
DX: R63.1 Polydipsia (principal); Z59.0 Homelessness; Z79.899 Other long term (current) drug therapy
CPT/HCPCS: 99283

== ENCOUNTER 2019-05-26 21:28 | Emergency (ER) | payer OTHER ==
[~2019-05-26] VITALS: Ht 185.4 cm; Wt 77.1 kg
== END 2019-05-26 23:55 | disposition home or self-care (01) ==
LOC: ER 21:28
DX: K94.03 Colostomy malfunction (principal)
CPT/HCPCS: 99282

== ENCOUNTER 2019-05-31 20:36 | Inpatient (IN) | payer OTHER ==
[~2019-05-31] VITALS: Ht 185.4 cm; Wt 74.6 kg
[2019-05-31 22:44] LABS: BASOPHILS ABSOLUTE AUTO 0.03 K/mm3 (0.00-0.23); BASOPHILS PERCENT AUTO 0 % (0-2); EOSINOPHILS ABSOLUTE AUTO 0.06 K/mm3 (0.00-0.68); EOSINOPHILS PERCENT AUTO 0 % (0-6); Hematocrit 32.4 % (37.0-53.0); Hemoglobin 11.3 g/dL (13.5-17.5); IMMATURE GRAN ABSOLUTE AUTO 0.12 K/mm3 (0.00-0.10); IMMATURE GRAN PERCENT AUTO 1 % (0-1); LYMPHOCYTES ABSOLUTE AUTO 1.34 K/mm3 (0.84-5.20); LYMPHOCYTES PERCENT AUTO 10 % (21-46); MONOCYTES PERCENT AUTO 5 % (4-13); Mean Corpuscular HGB 33.7 pg (26.0-34.0); Mean Corpuscular HGB Conc 34.9 g/dL (31.5-36.5); Mean Corpuscular Volume 97 fL (80-100); Mean Platelet Volume 8.8 fL (9.1-12.4); NEUTROPHILS ABSOLUTE AUTO 11.41 K/mm3 (1.96-9.15); NEUTROPHILS PERCENT AUTO 84 % (41-73); NRBC ABSOLUTE 0.06 K/mm3 (0.00-0.02); NRBC Auto 0.4 /100 WBC (0.0-0.2); Platelet Count 248 K/mm3 (150-400); RDW Standard Deviation 49.8 fL (35.1-46.3); Red Blood Cell Count 3.35 M/mm3 (4.30-5.90); White Blood Cell Count 13.66 K/mm3 (4.00-11.30)
[2019-05-31 23:09] LABS: Albumin/Globulin Ratio 0.8 (0.8-1.8); Bun/Creatinine Ratio 29.6 (12.0-20.0); Calcium, Blood 9.3 mg/dL (8.5-10.1); Creatinine, Blood 3.65 mg/dL (0.60-1.20); Globulin, Blood 4.9 g/dL (2.2-4.0); Potassium, Blood 5.8 mmol/L (3.5-5.5); Total Protein, Blood 8.9 g/dL (6.4-8.2)
[2019-05-31 23:12] LABS: Thyroid Stimulating Hormone 71.5 uIU/mL (0.360-4.800)
[2019-06-01 00:26] LABS: Source, Urine Clean Catch
[2019-06-01 00:28] LABS: Bilirubin, Urine Neg (Neg); Blood, Urine 4+ (Neg); Glucose Qualitative, Urine Neg (Neg); Ketones, Urine Neg (Neg); Leukocyte Esterase, Urine 3+ (Neg); Nitrite, Urine Pos (Neg); Protein, Urine 2+ (Neg); Specific Gravity, Urine 1.015 (1.003-1.022); Urobilinogen, Urine NORM (Normal)
[2019-06-01 00:46] LABS: Appearance, Urine Cloudy (Clear); Bacteria Many /hpf; Color, Urine Yellow (P-Yellow); Red Blood Cells, Urine 0-2 /hpf (0-2); Squamous Epithelial Cells Not Seen /hpf (Few); White Blood Cells, Urine TNTC /hpf (0-5)
[2019-06-01 03:23] LABS: Hematocrit 28.4 % (37.0-53.0); Hemoglobin 9.9 g/dL (13.5-17.5); Mean Corpuscular HGB 33.4 pg (26.0-34.0); Mean Corpuscular HGB Conc 34.9 g/dL (31.5-36.5); Mean Corpuscular Volume 96 fL (80-100); Mean Platelet Volume 8.8 fL (9.1-12.4); NRBC ABSOLUTE 0.02 K/mm3 (0.00-0.02); NRBC Auto 0.2 /100 WBC (0.0-0.2); Platelet Count 200 K/mm3 (150-400); RDW Standard Deviation 49.5 fL (35.1-46.3); Red Blood Cell Count 2.96 M/mm3 (4.30-5.90); White Blood Cell Count 12.59 K/mm3 (4.00-11.30)
[2019-06-01 03:42] LABS: Albumin, Blood 3.4 g/dL (3.4-5.0); Albumin/Globulin Ratio 0.8 (0.8-1.8); Bun/Creatinine Ratio 29.4 (12.0-20.0); Calcium, Blood 8.8 mg/dL (8.5-10.1); Creatinine, Blood 3.44 mg/dL (0.60-1.20); Globulin, Blood 4.3 g/dL (2.2-4.0); Potassium, Blood 5.2 mmol/L (3.5-5.5); Total Protein, Blood 7.7 g/dL (6.4-8.2)
--- NOTE | 2019-06-01 04:47 | NUR ---
SHIFT SUMMARY PT PRESENTS WITH GENERALIZED WEAKNESS AND COMPROMISED SKIN INTEGRITY. (SEE PHOTOS). THERE WAS DIFFICULTY COLLECTING A GOOD HISTORY DUE TO PT BEING DEVELOPMENTALLY AND COGNITIVELY DELAYED AND ONLY ORIENTED TO SELF. PT IS ABLE TO DRINK FLUIDS, ORANGE JUICE WAS GIVEN.PT SEEMS TO BE HOMELESS AND UNABLE TO CARE FOR HEALTH AND HYGIENE NEEDS. PT IS UNABLE TO CARE FOR COLOSTOMY AND FECES WAS FOUND DRIED ONTO THE ABDOMEN. HYGIENE WAS PERFORMED. THE STOMA IS RED AND INFLAMMED. NORMAL SALINE IS CURRENTLY INFUSING AND PATIENT IS GETTING SOME SLEEP. WILL CONTINUE TO MONITOR.
--- NOTE | 2019-06-01 18:07 | NUR ---
NO ACUTE CHANGES NOTED THIS SHIFT. PT INCONTINENT AND BED LINENS CHANGED SEVERAL TIMES THIS SHIFT. PT DOES USE CALL [place] BUT DOES CALL OUT AT TIMES. WILL CONTINUE TO MONITOR AND REPORT TO ONCOMING RN
--- NOTE | 2019-06-02 04:01 | NUR ---
SHIFT SUMMARY NO ACUTE CHANGES THIS SHIFT. PT HAS BEEN USING CALL LIGHT APPROPRIATELY AND COGNITION HAS APPEARED TO IMPROVE. PT STILL INCONTIENT AND NEEDS FREQUENT BED CHANGES. WILL CONTINUE TO MONITOR.
[2019-06-02 04:55] LABS: BASOPHILS ABSOLUTE AUTO 0.01 K/mm3 (0.00-0.23); BASOPHILS PERCENT AUTO 0 % (0-2); EOSINOPHILS ABSOLUTE AUTO 0.11 K/mm3 (0.00-0.68); EOSINOPHILS PERCENT AUTO 1 % (0-6); Hematocrit 24.5 % (37.0-53.0); Hemoglobin 8.4 g/dL (13.5-17.5); IMMATURE GRAN ABSOLUTE AUTO 0.08 K/mm3 (0.00-0.10); IMMATURE GRAN PERCENT AUTO 1 % (0-1); LYMPHOCYTES ABSOLUTE AUTO 1.71 K/mm3 (0.84-5.20); LYMPHOCYTES PERCENT AUTO 21 % (21-46); MONOCYTES ABSOLUTE AUTO 0.49 K/mm3 (0.16-1.47); MONOCYTES PERCENT AUTO 6 % (4-13); Mean Corpuscular HGB 33.6 pg (26.0-34.0); Mean Corpuscular HGB Conc 34.3 g/dL (31.5-36.5); Mean Corpuscular Volume 98 fL (80-100); Mean Platelet Volume 8.3 fL (9.1-12.4); NEUTROPHILS ABSOLUTE AUTO 5.95 K/mm3 (1.96-9.15); NEUTROPHILS PERCENT AUTO 71 % (41-73); NRBC ABSOLUTE 0.02 K/mm3 (0.00-0.02); NRBC Auto 0.2 /100 WBC (0.0-0.2); Platelet Count 160 K/mm3 (150-400); RDW Standard Deviation 50.4 fL (35.1-46.3); White Blood Cell Count 8.35 K/mm3 (4.00-11.30)
[2019-06-02 05:25] LABS: Calcium, Blood 8.2 mg/dL (8.5-10.1); Creatinine, Blood 2.63 mg/dL (0.60-1.20); Magnesium, Blood 2.3 mg/dL (1.6-2.4); Potassium, Blood 4.6 mmol/L (3.5-5.5)
--- NOTE | 2019-06-02 10:52 | NUR ---
BLADDER SCAN BLADDER SCAN SHOWING 560 ML, RESULTS CALLED TO DR LYNN. ORDERS RECEIVED FOR JIMENEZ CATH.
[2019-06-02 15:06] LABS: Source, Urine Catheter
[2019-06-02 15:10] LABS: Bilirubin, Urine Neg (Neg); Blood, Urine 3+ (Neg); Glucose Qualitative, Urine Neg (Neg); Ketones, Urine Neg (Neg); Leukocyte Esterase, Urine 3+ (Neg); Nitrite, Urine Neg (Neg); Protein, Urine 1+ (Neg); Specific Gravity, Urine 1.015 (1.003-1.022); Urobilinogen, Urine NORM (Normal)
[2019-06-02 15:16] LABS: Appearance, Urine Hazy (Clear); Color, Urine Pale Yellow (P-Yellow)
[2019-06-02 15:17] LABS: White Blood Cells, Urine 50-100 /hpf (0-5)
[2019-06-02 15:18] LABS: Bacteria Many /hpf; Granular Casts 0-2 /lpf (0); Mucus Light (0-Heavy); Squamous Epithelial Cells Few /hpf (Few)
--- NOTE | 2019-06-02 19:25 | NUR ---
PT RETAINING URINE, JIMENEZ CATH 10 Fr PLACED AND IS DRAINING WELL. PT HAS DENIES PAIN/DISCOMFORT TODAY. RECEIVING IVF PER DR LYNN. NO ACUTE CHANGES NOTED THIS SHIFT, WILL CONTINUE TO MONITOR AND REPORT TO ONCOMING RN
[2019-06-03 05:14] LABS: BASOPHILS ABSOLUTE AUTO 0.01 K/mm3 (0.00-0.23); BASOPHILS PERCENT AUTO 0 % (0-2); EOSINOPHILS ABSOLUTE AUTO 0.16 K/mm3 (0.00-0.68); EOSINOPHILS PERCENT AUTO 2 % (0-6); Hematocrit 22.1 % (37.0-53.0); Hemoglobin 7.6 g/dL (13.5-17.5); IMMATURE GRAN ABSOLUTE AUTO 0.06 K/mm3 (0.00-0.10); IMMATURE GRAN PERCENT AUTO 1 % (0-1); LYMPHOCYTES ABSOLUTE AUTO 1.57 K/mm3 (0.84-5.20); LYMPHOCYTES PERCENT AUTO 20 % (21-46); MONOCYTES ABSOLUTE AUTO 0.34 K/mm3 (0.16-1.47); MONOCYTES PERCENT AUTO 4 % (4-13); Mean Corpuscular HGB 33.6 pg (26.0-34.0); Mean Corpuscular HGB Conc 34.4 g/dL (31.5-36.5); Mean Corpuscular Volume 98 fL (80-100); Mean Platelet Volume 8.3 fL (9.1-12.4); NEUTROPHILS ABSOLUTE AUTO 5.82 K/mm3 (1.96-9.15); NEUTROPHILS PERCENT AUTO 73 % (41-73); Platelet Count 130 K/mm3 (150-400); RDW Standard Deviation 49.6 fL (35.1-46.3); Red Blood Cell Count 2.26 M/mm3 (4.30-5.90); White Blood Cell Count 7.96 K/mm3 (4.00-11.30)
[2019-06-03 05:43] LABS: Magnesium, Blood 1.8 mg/dL (1.6-2.4)
[2019-06-03 05:46] LABS: Albumin, Blood 2.8 g/dL (3.4-5.0); Anion Gap 9 mmol/L (6-16); Blood Urea Nitrogen 50 mg/dL (8-24); Bun/Creatinine Ratio 27.6 (12.0-20.0); CO2, Blood 18 mmol/L (21-32); Calcium, Blood 7.9 mg/dL (8.5-10.1); Chloride, Blood 103 mmol/L (98-108); Creatinine, Blood 1.81 mg/dL (0.60-1.20); Glomerular Filtration Rate 41 (60-); Glucose, Blood 106 mg/dL (70-99); Phosphorus, Blood 2.7 mg/dL (2.5-4.9); Potassium, Blood 3.9 mmol/L (3.5-5.5); Sodium, Blood 130 mmol/L (136-145)
--- NOTE | 2019-06-03 06:29 | NUR ---
NO C/O PAIN. VSS. SCATTERED SCABS THROUGHOUT BODY. NYSTATIN POWDER APPLIED AROUND OSTOMY APPLIANCE. NO OTHER ASSESSMENT CHANGES.
[2019-06-03 10:20] LABS: Percent Saturation 39.8 % (20.0-50.0)
--- NOTE | 2019-06-03 18:08 | NUR ---
SHIFT SUMMARY: PT IS ALERT TO SELF AND SITUATION AT BASELINE WITH NO C/O PAIN. PT REQUEST SNACKS AND FOOD ALL THROUGHOUT THE DAY. PT WAS ASSISTED WITH A BEDBATH THIS MORNING AND COLOSTOMY APPLIANCE WAS CHANGED. JIMENEZ REMAINS INTACT AND PATENT. 1 UNIT OF PRBCS WAS GIVEN ORDERED BY DR LYNN THIS MORNING WITH NO ADVERSE REACTIONS NOTED. IV ABO AND FLUIDS INFUSED WITH NO ISSUES. EXCORIATION REMAINS TO SKIN SURROUNDING COLOSTOMY SITE. PT CALLS FOR HELP WITH CALL LIGHT NEEDED.
--- NOTE | 2019-06-04 03:54 | NUR ---
LS CLEAR, NO C/O SOB. NO C/O NAUSEA. OSTOMY HAS SOFT YELLOW/BROWN OUTPUT. NO C/O PAIN. NO PRNS GIVEN. SKIN IS VERY DRY AND RED, SCATTERED SCABS, ESPECIALLY AROUND OSTOMY. NYSTATIN POWDER APPLIED. R HAND IV IS INFUSING @ 75ML/HR. JIMENEZ DRAINING CLEAR YELLOW OUTPUT. VSS. WAITING FOR DC PLAN, PT IS HOMELESS.
[2019-06-04 05:12] LABS: BASOPHILS ABSOLUTE AUTO 0.02 K/mm3 (0.00-0.23); BASOPHILS PERCENT AUTO 0 % (0-2); EOSINOPHILS ABSOLUTE AUTO 0.16 K/mm3 (0.00-0.68); EOSINOPHILS PERCENT AUTO 2 % (0-6); Hematocrit 25.6 % (37.0-53.0); IMMATURE GRAN ABSOLUTE AUTO 0.07 K/mm3 (0.00-0.10); IMMATURE GRAN PERCENT AUTO 1 % (0-1); LYMPHOCYTES PERCENT AUTO 19 % (21-46); MONOCYTES ABSOLUTE AUTO 0.31 K/mm3 (0.16-1.47); MONOCYTES PERCENT AUTO 4 % (4-13); Mean Corpuscular HGB 33.7 pg (26.0-34.0); Mean Corpuscular HGB Conc 35.2 g/dL (31.5-36.5); Mean Corpuscular Volume 96 fL (80-100); Mean Platelet Volume 8.4 fL (9.1-12.4); NEUTROPHILS ABSOLUTE AUTO 5.59 K/mm3 (1.96-9.15); NEUTROPHILS PERCENT AUTO 74 % (41-73); Platelet Count 125 K/mm3 (150-400); RDW Coefficient Variation 14.2 % (11.7-14.2); RDW Standard Deviation 50.1 fL (35.1-46.3); Red Blood Cell Count 2.67 M/mm3 (4.30-5.90); White Blood Cell Count 7.55 K/mm3 (4.00-11.30)
[2019-06-04 05:46] LABS: Magnesium, Blood 1.6 mg/dL (1.6-2.4)
[2019-06-04 05:47] LABS: Albumin, Blood 2.6 g/dL (3.4-5.0); Anion Gap 9 mmol/L (6-16); Blood Urea Nitrogen 32 mg/dL (8-24); Bun/Creatinine Ratio 20.8 (12.0-20.0); CO2, Blood 22 mmol/L (21-32); Calcium, Blood 7.7 mg/dL (8.5-10.1); Chloride, Blood 99 mmol/L (98-108); Creatinine, Blood 1.54 mg/dL (0.60-1.20); Glomerular Filtration Rate 49 (60-); Glucose, Blood 108 mg/dL (70-99); Phosphorus, Blood 1.6 mg/dL (2.5-4.9); Potassium, Blood 3.8 mmol/L (3.5-5.5); Sodium, Blood 130 mmol/L (136-145)
--- NOTE | 2019-06-04 17:39 | NUR ---
SHIFT SUMMARY: PT HAS BEEN A/O AT BASELINE TODAY WITH NO C/O PAIN. PT HAS HAD NAUSEA ON AND OFF TODAY WITH AN EPISODE OF EMESIS. ZOFRAN WAS GIVEN ORDERED AND WAS EFFECTIVE. IV FLUIDS AND ABO INFUSED WITH NO ISSUES OBSERVED. PT CONTINUES TO NEED TOTAL CARE FOR ADLS. COLOSTOMY AND JIMENEZ ARE BOTH INTACT.
--- NOTE | 2019-06-05 05:01 | NUR ---
Shift summary. Pt grunts and groan alot during the night, flipping over and getting tangled in iv lines. Pt given zofran x 1 for upset stomach. Colostomy bag intact. Emptied x 2 during the night.
[2019-06-05 05:13] LABS: BASOPHILS ABSOLUTE AUTO 0.03 K/mm3 (0.00-0.23); BASOPHILS PERCENT AUTO 0 % (0-2); EOSINOPHILS ABSOLUTE AUTO 0.05 K/mm3 (0.00-0.68); EOSINOPHILS PERCENT AUTO 0 % (0-6); Hematocrit 32.6 % (37.0-53.0); Hemoglobin 11.2 g/dL (13.5-17.5); IMMATURE GRAN ABSOLUTE AUTO 0.09 K/mm3 (0.00-0.10); IMMATURE GRAN PERCENT AUTO 1 % (0-1); LYMPHOCYTES ABSOLUTE AUTO 1.21 K/mm3 (0.84-5.20); LYMPHOCYTES PERCENT AUTO 9 % (21-46); MONOCYTES ABSOLUTE AUTO 0.33 K/mm3 (0.16-1.47); MONOCYTES PERCENT AUTO 3 % (4-13); Mean Corpuscular HGB 32.7 pg (26.0-34.0); Mean Corpuscular HGB Conc 34.4 g/dL (31.5-36.5); Mean Corpuscular Volume 95 fL (80-100); Mean Platelet Volume 8.5 fL (9.1-12.4); NEUTROPHILS ABSOLUTE AUTO 11.31 K/mm3 (1.96-9.15); NEUTROPHILS PERCENT AUTO 87 % (41-73); Platelet Count 149 K/mm3 (150-400); RDW Coefficient Variation 14.2 % (11.7-14.2); RDW Standard Deviation 49.5 fL (35.1-46.3); Red Blood Cell Count 3.43 M/mm3 (4.30-5.90); White Blood Cell Count 13.02 K/mm3 (4.00-11.30)
[2019-06-05 05:38] LABS: Albumin, Blood 2.8 g/dL (3.4-5.0); Anion Gap 7 mmol/L (6-16); Blood Urea Nitrogen 20 mg/dL (8-24); Bun/Creatinine Ratio 14.8 (12.0-20.0); CO2, Blood 26 mmol/L (21-32); Chloride, Blood 99 mmol/L (98-108); Creatinine, Blood 1.35 mg/dL (0.60-1.20); Glomerular Filtration Rate 57 (60-); Glucose, Blood 106 mg/dL (70-99); Magnesium, Blood 1.6 mg/dL (1.6-2.4); Phosphorus, Blood 2.1 mg/dL (2.5-4.9); Sodium, Blood 132 mmol/L (136-145)
--- NOTE | 2019-06-05 17:36 | NUR ---
SHIFT SUMMARY: PT HAS BEEN A/O AT BASELINE TODAY WITH NO C/O PAIN. HE DID C/O NAUSEA X 1 AND REPORTED THAT THE ZOFRAN WAS EFFECTIVE. JIMENEZ WAS DCD PER MD ORDER AND PT WAS ABLE TO VOID WITH NO ISSUES AND IS NOW USING THE URINAL. COLOSTOMY BAG AND WAFER WERE CHANGED THEY CAME OFF. IV FLUIDS/ABO RAN WITH NO ADVERSE REACTIONS NOTED. PT CALLS FOR HELP WHEN NEEDED. NO ACUTE CHANGES NOTED THIS SHIFT.
--- NOTE | 2019-06-06 05:29 | NUR ---
63 year old Male admitted with cellulitis and urinary retention. UA positive for Klebsella oxytoca UTI. PT has multiple skin issues scattered scabs and excoriation around colostomy site. Skin care provided. Opsite applied aroud colostomy appliance to prevent leaking. Able to void, takes fluids adequate. Poor appetie, likes ice cream or jello. Edentulous. Able to communicate, speech is soft and garbled. 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 He has fall precautions in place due to hx of frequent falls. Denies pain or acute distress. SW referral in for discharge planning in homeless PT. Continues on IV fluids discouraged carbonated beverage use. See's DR Conti for CKD.
[2019-06-06 05:32] LABS: BASOPHILS ABSOLUTE AUTO 0.02 K/mm3 (0.00-0.23); BASOPHILS PERCENT AUTO 0 % (0-2); EOSINOPHILS PERCENT AUTO 3 % (0-6); Hematocrit 27.2 % (37.0-53.0); Hemoglobin 9.1 g/dL (13.5-17.5); IMMATURE GRAN ABSOLUTE AUTO 0.05 K/mm3 (0.00-0.10); IMMATURE GRAN PERCENT AUTO 1 % (0-1); LYMPHOCYTES ABSOLUTE AUTO 1.67 K/mm3 (0.84-5.20); LYMPHOCYTES PERCENT AUTO 21 % (21-46); MONOCYTES ABSOLUTE AUTO 0.28 K/mm3 (0.16-1.47); MONOCYTES PERCENT AUTO 3 % (4-13); Mean Corpuscular HGB 33.2 pg (26.0-34.0); Mean Corpuscular HGB Conc 33.5 g/dL (31.5-36.5); Mean Corpuscular Volume 99 fL (80-100); Mean Platelet Volume 8.2 fL (9.1-12.4); NEUTROPHILS ABSOLUTE AUTO 5.92 K/mm3 (1.96-9.15); NEUTROPHILS PERCENT AUTO 73 % (41-73); Platelet Count 115 K/mm3 (150-400); RDW Coefficient Variation 14.2 % (11.7-14.2); RDW Standard Deviation 51.7 fL (35.1-46.3); Red Blood Cell Count 2.74 M/mm3 (4.30-5.90); White Blood Cell Count 8.14 K/mm3 (4.00-11.30)
[2019-06-06 05:53] LABS: Albumin, Blood 2.4 g/dL (3.4-5.0); Anion Gap 5 mmol/L (6-16); Blood Urea Nitrogen 14 mg/dL (8-24); Bun/Creatinine Ratio 10.5 (12.0-20.0); CO2, Blood 26 mmol/L (21-32); Calcium, Blood 7.4 mg/dL (8.5-10.1); Chloride, Blood 100 mmol/L (98-108); Creatinine, Blood 1.33 mg/dL (0.60-1.20); Glomerular Filtration Rate 58 (60-); Glucose, Blood 99 mg/dL (70-99); Magnesium, Blood 1.4 mg/dL (1.6-2.4); Phosphorus, Blood 1.8 mg/dL (2.5-4.9); Potassium, Blood 3.8 mmol/L (3.5-5.5); Sodium, Blood 131 mmol/L (136-145)
--- NOTE | 2019-06-06 17:12 | NUR ---
SHIFT SUMMARY PT AWAKE DURING SHIFT REPORT THIS AM. MAG RIDER INFUSING PER EMAR. NA+PHOS WAITING TO INFUSE WHEN MAG RIDER COMPLETE. PT ADMITTED FOR CELLULITIS; SKIN IN POOR CONDITION WITH SCATTERED SCABS AND RASHES. PER REPORT, PT HOMELESS BUT LIVES IN [place]. PT THEN REPORTED THAT HE LIVES IN A TRAILER IN [place]. PT WITH COLOSTOMY, BUT IS UNABLE TO CARE FOR THE OSTOMY HIMSELF. SPEECH CAN BE DIFFICULT TO UNDERSTAND AT TIMES; SLURRED OR GARBLED SLIGHTLY. LIKES JELLO AND ICE CREAM. USING URINAL IN BED. LRG AMT OF OUTPUT FROM OSTOMY. PT REPORTS THAT HE IS ABLE TO AMBULATE, BUT HAD NOT BEEN OOB THIS AM. P/T AND O/T ORDERED. NO C/O PAIN. DENIED FURTHER NEEDS. WATCHES TV AND SLEEPS OFF AND ON. CALL LT IN REACH.
--- NOTE | 2019-06-07 04:30 | NUR ---
PT continues to watch TV from laying position all shift unable or uninterested in caring for colostomy or personal needs. He has desire to have multiple warm blankets and carbonated beverages frequently. On room air able to use urinal without assist. Moderate amts of mushy brown stool out via colostomy. Pt oblivious about caring for colostomy when it needs burped or emptied. He does not get out of bed or ambulate. PT is homeless, but says he will have to return to [place] on [place]. Last time he was here there was a developer advocate involved and he had pending hearing for disability benefits. He says the hearing is set for 2 months from now. PT says he has not income or support system , day shift reports PT does not want to go to SNF. [place] planning involved.
[2019-06-07 06:03] LABS: Albumin, Blood 2.3 g/dL (3.4-5.0); Anion Gap 5 mmol/L (6-16); Blood Urea Nitrogen 11 mg/dL (8-24); Bun/Creatinine Ratio 9.2 (12.0-20.0); CO2, Blood 26 mmol/L (21-32); Calcium, Blood 7.5 mg/dL (8.5-10.1); Chloride, Blood 100 mmol/L (98-108); Creatinine, Blood 1.19 mg/dL (0.60-1.20); Glomerular Filtration Rate >60 (60-); Glucose, Blood 94 mg/dL (70-99); Magnesium, Blood 1.8 mg/dL (1.6-2.4); Phosphorus, Blood 2.1 mg/dL (2.5-4.9); Potassium, Blood 3.6 mmol/L (3.5-5.5); Sodium, Blood 131 mmol/L (136-145)
[2019-06-07 14:55] LABS: Stool Occult Blood Guaiac 1 Neg (Neg)
[2019-06-07] MEDS ORDERED: ACET325 PO (16:07)
[2019-06-07] MEDS ORDERED: Pedi-Dri 100,0060 GM TOP (16:08)
[2019-06-07] MEDS ORDERED: LEVO750 PO (16:09)
[2019-06-07] MEDS ORDERED: VISBIOME 112.51 EACH PO (16:20)
[2019-06-07] MEDS ORDERED: SKIN PROTECTAN113 GM TOP (16:22)
--- NOTE | 2019-06-07 16:32 | NUR ---
PT TRANSFERED TO [facility]. PT ESCORTED TO TRANSPORTATION BY SYMONE RUVALCABA RN. IV REMOVED PRIOR TO TRANSPORTATION. PT BELONGINGS WITH PT. REPORT CALLED IN TO [facility] PRIOR TO PT DISCHARGE. PT TO TRANSPORTATION IN WHEELCHAIR. PT ALERT AT TIME OF LEAVING FLOOR.
== END 2019-06-07 16:32 | DRG 394 ==
LOC: ER 20:36 → MEDS 20:37
PROVIDERS: Emergency Medicine; Family Medicine; Internal Medicine; Internal Medicine Nephrology; ADMIT Internal Medicine
PROC: 30233N1 Transfusion of Nonautologous Red Blood Cells into Peripheral Vein, Percutaneous Approach (ICD-10-PCS; principal; 2019-06-04)
DX: K94.02 Colostomy infection (principal); L03.311 Cellulitis of abdominal wall; N39.0 Urinary tract infection, site not specified; E87.1 Hypo-osmolality and hyponatremia; N17.9 Acute kidney failure, unspecified; E87.5 Hyperkalemia; I12.9 Hypertensive chronic kidney disease with stage 1 through stage 4 chronic kidney disease, or unspecified chronic kidney disease; N18.3 Chronic kidney disease, stage 3 (moderate); D63.1 Anemia in chronic kidney disease; E83.39 Other disorders of phosphorus metabolism; E03.9 Hypothyroidism, unspecified; Z87.820 Personal history of traumatic brain injury; Z86.73 Personal history of transient ischemic attack (TIA), and cerebral infarction without residual deficits; B96.1 Klebsiella pneumoniae [K. pneumoniae] as the cause of diseases classified elsewhere; Z59.0 Homelessness
CPT/HCPCS: 36415; 36430; 51702; 71046; 76770; 80048; 80053; 80069; 81001; 82272; 82550; 82607; 82728; 82746; 83540; 83550; 83605; 83735; 84439; 84443; 85018; 85025; 85027; 86850; 86900; 86901; 86923; 87040; 87077; 87086; 87186; 93005; 93010; 96365; 96375; 97110; 97116; 97161; 97165; 97530; 99285-25; G0378; J0610; J0881; J1644; J1815; J1956; J2405; J2543; J3475; J7030; J7060; J7070; J7799; P9016